=== PATIENT | male | born 1980 | race African-American/Black ===

== ENCOUNTER 2017-01-22 18:28 | Emergency (ER) | payer SELFPAY ==
[~2017-01-22] VITALS: Ht 188 cm; Wt 105.0 kg
[2017-01-22 18:44] VITALS: BP 125/76; PULSE 67; RESP 16; TEMP 99.1; O2SAT 98
[2017-01-22] MEDS ORDERED: ERYTOIN10 RIGHT EYE (19:22)
--- NOTE | 2017-01-22 19:22 | PD ---
HPI Chief Complaint: Eye Problems/Injury Time Seen by Provider: 19:18 Travel History International Travel<30 days: No Contact w/Intl Traveler<30days: No Traveled to known affect area: No History of Present Illness HPI Patient comes in complaining of possible stye to his right upper lateral eyelid has a first noticed 2 days ago. Patient states he's had similar in the past, but it went away on its own after a few days. Patient concerned as he feels it is getting bigger causing his eye to water. Patient describes pain as irritation like in nature without radiation. Denies any trauma, eye crusting, change in vision, fevers, headaches, or foreign body sensation. PFSH Past Medical History Medical History: Denies Significant Hx Diminished Hearing: No Tetanus Vaccination: > 5 Years Influenza Vaccination: No Past Surgical History Surgical History: No Previous Surgery Social History Alcohol Use: Yes (SOCIALLY) Tobacco Use: Yes (2-3 CIGARS DAILY) Substance Use: No Allergies-Medications (Allergen,Severity, Reaction): Coded Allergies: No Known Allergies (Verified , 01/22/17) Reported Meds & Prescriptions Reported Meds & Active Scripts Active Erythromycin Opth Oint 5 Mg/Gm Oint 1 Applic RIGHT EYE QID Review of Systems Except as stated in HPI: all other systems reviewed are Neg Physical Exam Narrative GENERAL: Well-developed, well nourished, in no acute distress, and non-ill appearing. SKIN: Warm and dry. HEAD: Atraumatic. Normocephalic. EYES: Pupils equal and round. EOMI. No scleral icterus. No injection or drainage. Stye noted right upper lateral eyelid is minimally tender to palpation. There is no fluctuation or cellulitis appreciated. ENT: No nasal bleeding or discharge. Mucous membranes pink and moist. NECK: Trachea midline. Supple. No nuclear rigidity. RESPIRATORY: No accessory muscle use. No respiratory distress. MUSCULOSKELETAL: No obvious deformities. No clubbing. No cyanosis. No edema. Full range of motion. NEUROLOGICAL: Awake and alert. No obvious cranial nerve deficits. Motor grossly within normal limits. Normal speech. PSYCHIATRIC: Appropriate mood and affect; insight and judgment normal. Data Data Last Documented VS Vital Signs Date Time Temp Pulse Resp B/P Pulse Ox O2 Delivery O2 Flow Rate FiO2 01/22/17 19:11 16 01/22/17 18:44 99.1 67 125/76 98 MDM Medical Decision Making Medical Screen Exam Complete: Yes Emergency Medical Condition: Yes Differential Diagnosis Hordeolum, blepharitis, conjunctivitis, periorbital cellulitis, other Narrative Course Patient in no obvious distress upon re-evaluation. Patient was asked if they wanted to speak to my attending, which the patient did not wish to do at this time. Any questions/concerns in reference to patient diagnosis/condition discussed and clarified prior to patient's discharge. Reinforced sheer importance of close follow up with patient's primary physician or primary care clinic and/or salesperson parts. Instructed patient to return to ED immediately, if symptoms return/worsen. Pt showed understanding of above instructions. Further instructions and recommendations were detailed in discharge paperwork. Pt ambulated without difficulty out of ED at discharge. Diagnosis Primary Impression: Hordeolum internum right eye, unspecified eyelid Referrals: Cheryl Packer MD Patient Instructions: General Instructions, [place] (ED) Additional Instructions: Follow-up with your primary care physician and/or salesperson parts in 3-5 days reevaluation. Take all medication as prescribed. Wash affected eye with baby shampoo 2-3 times daily. Apply warm compresses 4 or more times daily to affected eye. Return to the emergency department if symptoms get worse. Med/Other Pt SpecificInfo: Prescription(s) given Scripts Erythromycin Opth Oint 5 Mg/Gm Oint1 Applic RIGHT EYE QID #1 TUBE Ref 0 Prov:Vivienne Bauer MD 01/22/17 Disposition: 01 DISCHARGE HOME Condition: Stable Louis Santamaria Jan 22, 2017 19:22
== END 2017-01-22 19:36 | disposition home or self-care (01) ==
LOC: NEPB 18:28
DX: H00.021 Hordeolum internum right upper eyelid (principal); Z72.0 Tobacco use
CPT/HCPCS: 99283